=== PATIENT | female | born 1960 | race Caucasian/White ===

== ENCOUNTER 2018-01-06 09:33 | Emergency (ER) | payer OTHER ==
[~2018-01-06] VITALS: Ht 172.7 cm; Wt 90.0 kg
[~2018-01-06 09:33] MED LIST: AMLODIPINE5 MG PO; CRESTOR10 MG PO; ESCITALOPRAM OX10 MG PO; FLEXERIL PO; HYDROCHLOROT25 MG PO; K-DUR/KLOR-CON20 MEQ PO; LEXAPRO10 MG PO; LISINOPRIL20 MG PO; LORTAB 10 PO; LORTAB 1010 MG PO; MEDDOSEPAK OR; PERCOCET1 TA4 OR; PRILOSEC20 MG/CAP PO; RANITIDINE150 M1 PO; SOMA350 MG PO; TORADOL30 MG/VIAL IJ; TRAZODONE50 MG PO; VITAMIN D31000 UNI1 PO; ZESTRIL10 M1 OR; ZOFRAN ODT8 MG PO; ZOLPIDEM10 M1 PO
[2018-01-06] MEDS ORDERED: MACROBID100 MG PO (09:46)
[2018-01-06 10:26] LABS: URINE BILIRUBIN - DIPSTICK SMALL (NEGATIVE); URINE BLOOD DIPSTICK SMALL (NEGATIVE); URINE COLOR YELLOW; URINE GLUCOSE - DIPSTICK NEGATIVE (NEGATIVE); URINE KETONE 15 mg/dL (NEGATIVE); URINE LEUK ESTERASE NEGATIVE (NEGATIVE); URINE NITRITE - DIPSTICK NEGATIVE (Negative); URINE PROTEIN - DIPSTICK 30 mg/dL (NEG-TRACE); URINE SPECIFIC GRAVITY 1.015; URINE UROBILINOGEN - DIPSTICK 0.2 E.U./dL (0.2)
[2018-01-06 10:27] LABS: URINE CLARITY SL CLOUDY; URINE EPITHELIAL CELLS MODERATE EPI/hpf (0-FEW)
[2018-01-06 10:28] LABS: HEMOGLOBIN 13.8 g/dl (12.0-16.0); IMMATURE GRANULOCYTES 0.3 % (0.0-5.0); MEAN CELL VOLUME 82.6 fL CALC (80.0-100.0); MEAN CORPUSCULAR HGB 29.2 pG CALC (26.0-32.0); MEAN CORPUSCULAR HGB CONC 35.4 g/L CALC (32.0-36.0); NEUT# 5.05 thou/uL (2.00-7.15); RED BLOOD COUNT 4.72 mill/uL (4.20-5.60); RED CELL DISTRI WIDTH 12.3 % (11.5-15.5)
[2018-01-06 10:28] LABS: URINE MUCUS FEW hpf (NONE-FEW)
[2018-01-06 10:45] LABS: ALBUMIN 4.6 g/dL (3.2-5.0); ALKALINE PHOSPHATASE 100 u/l (38-126); ANION GAP 20 (6-22 (CALC)); BILIRUBIN, TOTAL 0.6 mg/dL (0.0-1.4); BUN 9 mg/dL (7-17); BUN/CREATININE RATIO 16 (12-20 (CALC)); CARBON DIOXIDE 28 mmol/l (22-30); CHLORIDE 95 mmol/l (95-108); CREATININE 0.6 mg/dL (0.5-1.0); GFR > 60 ML/MIN (>=60 (CALC)); GFR FOR AFR.AMER. > 60 ML/MIN (>=60 (CALC)); LIPASE 27 u/l (23-300); POTASSIUM 3.3 mmol/l (3.5-5.1); SGOT/AST 32 u/l (14-36); SGPT/ALT 38 u/l (9-52); TOTAL PROTEIN 8.3 g/dL (6.3-8.2)
[2018-01-06 10:46] LABS: SODIUM 140 mmol/l (137-146)
[2018-01-06] MEDS ORDERED: HYDROCODONE/ACE1 TAB PO (11:18)
[2018-01-06] MEDS ORDERED: PHENERGAN25 M1 PR (13:46)
[2018-01-06] MEDS ORDERED: ZOFRAN4 MG/TAB PO (13:46)
[2018-01-06 13:58] VITALS: BP 157/73
== END 2018-01-06 13:58 | disposition home or self-care (01) | DRG 392 ==
LOC: ED 09:33
PROVIDERS: Emergency Medicine
DX: R10.11 Right upper quadrant pain (principal); R11.0 Nausea; I10 Essential (primary) hypertension; E78.5 Hyperlipidemia, unspecified
CPT/HCPCS: Q9967

== ENCOUNTER 2019-11-28 10:32 | Emergency (ER) | payer OTHER ==
[~2019-11-28] VITALS: Ht 172.7 cm; Wt 85.0 kg
[~2019-11-28 10:32] MED LIST changes: +HYDROCODONE/ACE1 TAB PO; +MACROBID100 MG PO; +PHENERGAN25 M1 PR; +ZOFRAN4 MG/TAB PO
[2019-11-28] MEDS ORDERED: ONDANSETRON4 MG PO (11:05)
[2019-11-28 11:07] LABS: HEMATOCRIT 40.1 % (37.0-47.0); HEMOGLOBIN 14.4 g/dl (12.0-16.0); IMMATURE GRANULOCYTES 0.2 % (0.0-5.0); MEAN CELL VOLUME 80.5 fL CALC (80.0-100.0); MEAN CORPUSCULAR HGB 28.9 pG CALC (26.0-32.0); MEAN CORPUSCULAR HGB CONC 35.9 g/dL CAL (32.0-36.0); NEUT# 4.1 thou/uL (2.00-7.15); RED BLOOD COUNT 4.98 mill/uL (4.20-5.60); RED CELL DISTRI WIDTH 11.9 % (11.5-15.5)
[2019-11-28 11:08] LABS: URINE BLOOD DIPSTICK NEGATIVE (NEGATIVE); URINE COLOR YELLOW; URINE GLUCOSE - DIPSTICK NEGATIVE (NEGATIVE); URINE KETONE 15 mg/dL (NEGATIVE); URINE LEUK ESTERASE NEGATIVE (NEGATIVE); URINE NITRITE - DIPSTICK NEGATIVE (Negative); URINE PROTEIN - DIPSTICK TRACE mg/dL (NEG-TRACE); URINE SPECIFIC GRAVITY 1.015; URINE UROBILINOGEN - DIPSTICK 0.2 E.U./dL (0.2)
[2019-11-28 11:16] LABS: URINE BILIRUBIN - DIPSTICK SMALL (NEGATIVE)
[2019-11-28 11:23] LABS: ALKALINE PHOSPHATASE 106 u/l (38-126); ANION GAP 15 (6-22 (CALC)); BILIRUBIN, TOTAL 0.7 mg/dL (0.0-1.4); BUN 10 mg/dL (7-17); BUN/CREATININE RATIO 18 (12-20 (CALC)); CARBON DIOXIDE 34 mmol/l (22-30); CHLORIDE 81 mmol/l (95-108); CREATININE 0.6 mg/dL (0.5-1.0); GFR > 60 ML/MIN (>=60 (CALC)); GFR FOR AFR.AMER. > 60 ML/MIN (>=60 (CALC)); LIPASE 43 u/l (23-300); SGOT/AST 31 u/l (14-36); SODIUM 127 mmol/l (137-146); TOTAL PROTEIN 8.9 g/dL (6.3-8.2)
[2019-11-28] MEDS ORDERED: ONDANSETRON ODT8 MG PO (13:56)
[2019-11-28] MEDS ORDERED: K-TAB20 MEQ PO (13:56)
[2019-11-28 14:22] VITALS: BP 140/72
== END 2019-11-28 14:21 | disposition home or self-care (01) | DRG 392 ==
LOC: ED 10:32
PROVIDERS: Family Medicine
DX: R11.2 Nausea with vomiting, unspecified (principal); R10.13 Epigastric pain; E87.1 Hypo-osmolality and hyponatremia; E87.6 Hypokalemia; I10 Essential (primary) hypertension
CPT/HCPCS: Q9967

== ENCOUNTER 2020-01-05 12:57 | Emergency (ER) | payer OTHER ==
[~2020-01-05] VITALS: Ht 172.7 cm; Wt 80.0 kg
[~2020-01-05 12:57] MED LIST changes: +K-TAB20 MEQ PO; +ONDANSETRON ODT8 MG PO; +ONDANSETRON4 MG PO
[2020-01-05 13:20] LABS: HEMATOCRIT 38.4 % (37.0-47.0); HEMOGLOBIN 13.6 g/dl (12.0-16.0); IMMATURE GRANULOCYTES 0.4 % (0.0-5.0); MEAN CORPUSCULAR HGB 28.7 pG CALC (26.0-32.0); MEAN CORPUSCULAR HGB CONC 35.4 g/dL CAL (32.0-36.0); NEUT# 3.72 thou/uL (2.00-7.15); RED BLOOD COUNT 4.74 mill/uL (4.20-5.60); RED CELL DISTRI WIDTH 11.9 % (11.5-15.5)
[2020-01-05 13:45] LABS: ALBUMIN 5.3 g/dL (3.2-5.0); ALKALINE PHOSPHATASE 101 u/l (38-126); ANION GAP 18 (6-22 (CALC)); BILIRUBIN, TOTAL 0.6 mg/dL (0.0-1.4); BUN 10 mg/dL (7-17); BUN/CREATININE RATIO 14 (12-20 (CALC)); CHLORIDE 83 mmol/l (95-108); CREATININE 0.7 mg/dL (0.5-1.0); GFR > 60 ML/MIN (>=60 (CALC)); GFR FOR AFR.AMER. > 60 ML/MIN (>=60 (CALC)); SGOT/AST 44 u/l (14-36); SODIUM 123 mmol/l (137-146)
[2020-01-05 13:46] LABS: CARBON DIOXIDE 25 mmol/l (22-30)
[2020-01-05 13:47] LABS: ACT PARTIAL THROMBO TIME 32.1 SECONDS (20.0-32.5); INTERNATIONAL NORMALIZED RATIO 1.1 RATIO (0.7-1.3); PROTHROMBIN TIME 10.5 SECONDS (9.0-12.5)
[2020-01-05 13:57] LABS: AMYLASE 87 u/l (30-110); LIPASE 40 u/l (23-300)
[2020-01-05 14:16] LABS: URINE BILIRUBIN - DIPSTICK NEGATIVE (NEGATIVE); URINE BLOOD DIPSTICK NEGATIVE (NEGATIVE); URINE COLOR YELLOW; URINE GLUCOSE - DIPSTICK NEGATIVE (NEGATIVE); URINE KETONE NEGATIVE (NEGATIVE); URINE LEUK ESTERASE NEGATIVE (NEGATIVE); URINE NITRITE - DIPSTICK NEGATIVE (Negative); URINE PROTEIN - DIPSTICK NEGATIVE (NEG-TRACE); URINE UROBILINOGEN - DIPSTICK 0.2 E.U./dL (0.2)
[2020-01-05] MEDS ORDERED: ONDANSETRON4 MG PO (15:29)
[2020-01-05] MEDS ORDERED: PEPCID20 MG PO (15:29)
[2020-01-05] MEDS ORDERED: MAALOX ADV1 CHW PO (15:35)
[2020-01-05 16:15] VITALS: BP 194/83
== END 2020-01-05 16:25 | disposition home or self-care (01) | DRG 392 ==
LOC: ED 12:57
PROVIDERS: Student in an Organized Health Care Education/Training Program
DX: K29.70 Gastritis, unspecified, without bleeding (principal); E87.1 Hypo-osmolality and hyponatremia; E87.6 Hypokalemia; K58.9 Irritable bowel syndrome, unspecified; I10 Essential (primary) hypertension; F41.9 Anxiety disorder, unspecified

== ENCOUNTER 2022-11-27 15:38 | Emergency (ER) | payer OTHER ==
[~2022-11-27] VITALS: Ht 172.7 cm; Wt 96.6 kg
[~2022-11-27 15:38] MED LIST changes: +MAALOX ADV1 CHW PO; +PEPCID20 MG PO
[2022-11-27 15:56] VITALS: BP 146/82
[2022-11-27 16:00] VITALS: BP 134/71
[2022-11-27 16:15] VITALS: BP 132/70
[2022-11-27 16:48] LABS: BASO% 0.7 % (0-3); EOS% 2.2 % (0-8); HEMOGLOBIN 12.8 g/dl (12.0-16.0); IMMATURE GRANULOCYTES 0.4 % (0.0-5.0); LYMPH% 28.3 % (15-41); MEAN CORPUSCULAR HGB 28.8 pG CALC (26.0-32.0); MEAN CORPUSCULAR HGB CONC 32.8 g/dL CAL (32.0-36.0); MONO% 8.8 % (2-13); NEUT# 3.25 thou/uL (2.00-7.15); NEUT% 59.6 % (42-76); RED BLOOD COUNT 4.44 mill/uL (4.20-5.60); RED CELL DISTRI WIDTH 12.5 % (11.5-15.5)
[2022-11-27 16:55] LABS: MEAN CELL VOLUME 87.8 fL CALC (80.0-100.0)
[2022-11-27 17:02] LABS: ALKALINE PHOSPHATASE 74 u/l (38-126); BUN 15 mg/dL (7-17); BUN/CREATININE RATIO 15 (12-20 (CALC)); GFR FOR AFR.AMER. > 60 ML/MIN (>=60 (CALC)); GFR OTHER RACES 57 ML/MIN (>=60 (CALC)); SGOT/AST 31 u/l (14-36); TOTAL PROTEIN 7.7 g/dL (6.3-8.2)
[2022-11-27 17:04] LABS: ALBUMIN 4.2 g/dL (3.2-5.0); ANION GAP 12 (6-22 (CALC)); BILIRUBIN, TOTAL 0.3 mg/dL (0.02-1.3); CARBON DIOXIDE 31 mmol/l (22-30); CHLORIDE 98 mmol/l (95-108); POTASSIUM 3.9 mmol/l (3.5-5.1); SODIUM 137 mmol/l (137-146)
[2022-11-27 17:08] LABS: D-DIMER 0.65 mg/L (0.19-0.60)
[2022-11-27 17:20] LABS: ACT PARTIAL THROMBO TIME 29.1 SECONDS (20.0-32.5)
[2022-11-27 18:08] VITALS: BP 132/70
== END 2022-11-27 18:10 | disposition home or self-care (01) | DRG 558 ==
LOC: ED 15:38
PROVIDERS: Family Medicine
DX: M71.21 Synovial cyst of popliteal space [Baker], right knee (principal); R60.0 Localized edema; I83.91 Asymptomatic varicose veins of right lower extremity; I10 Essential (primary) hypertension; E78.5 Hyperlipidemia, unspecified; F41.9 Anxiety disorder, unspecified; K58.9 Irritable bowel syndrome, unspecified

== ENCOUNTER 2023-12-28 10:53 | Emergency (ER) | payer OTHER ==
[~2023-12-28] VITALS: Ht 167.6 cm; Wt 89.3 kg
[2023-12-28 11:10] VITALS: BP 187/88
[2023-12-28 11:16] VITALS: BP 155/82
[2023-12-28 11:20] LABS: BASO% 0.2 % (0-3); EOS% 0.5 % (0-8); HEMATOCRIT 41.7 % (37.0-47.0); HEMOGLOBIN 14.3 g/dl (12.0-16.0); IMMATURE GRANULOCYTES 0.2 % (0.0-5.0); LYMPH% 17.2 % (15-41); MEAN CELL VOLUME 86.7 fL CALC (80.0-100.0); MEAN CORPUSCULAR HGB 29.7 pG CALC (26.0-32.0); MEAN CORPUSCULAR HGB CONC 34.3 g/dL CAL (32.0-36.0); MONO% 7.4 % (2-13); NEUT# 4.15 thou/uL (2.00-7.15); NEUT% 74.5 % (42-76); RED BLOOD COUNT 4.81 mill/uL (4.20-5.60); RED CELL DISTRI WIDTH 11.9 % (11.5-15.5)
[2023-12-28 11:30] VITALS: BP 166/85
[2023-12-28 11:40] LABS: ALBUMIN 4.8 g/dL (3.2-5.0); POTASSIUM 3.7 mmol/l (3.5-5.1); TOTAL PROTEIN 8.2 g/dL (6.3-8.2)
[2023-12-28 11:45] VITALS: BP 172/93
[2023-12-28 11:45] LABS: CREATININE 0.7 mg/dL (0.5-1.0)
[2023-12-28 11:49] LABS: BILIRUBIN, TOTAL 0.5 mg/dL (0.02-1.3)
[2023-12-28] MEDS ORDERED: KETOROLAC TROMETHAMINE 30 MG/ML SDV IV ONE (11:50)
[2023-12-28] MEDS ORDERED: METOCLOPRAMIDE HCL 10 MG/2 ML SDV IV ONE (11:50)
[2023-12-28] MEDS ORDERED: DiphenhydrAMINE HCL 50 MG/ML SDV IV ONE (11:50)
[2023-12-28] MEDS ORDERED: DEXAMETHASONE SOD. PHOSPHATE 10 MG/ML VIAL IV ONE (13:25)
[2023-12-28 13:43] VITALS: BP 162/93
== END 2023-12-28 13:46 | disposition home or self-care (01) | DRG 103 ==
LOC: ED 10:53
PROVIDERS: Family Medicine
DX: R51.9 Headache, unspecified (principal); I10 Essential (primary) hypertension; E78.5 Hyperlipidemia, unspecified; F41.9 Anxiety disorder, unspecified